=== PATIENT | male | born 1950 | race African-American/Black ===

== ENCOUNTER → 2019-03-10 | Outpatient (CLI) | payer MEDICARE ==
[2019-03-10] VITALS (12 sets, daily range): BP systolic 157–171; BP diastolic 74–83
[~2019-03-10] VITALS: Ht 172.7 cm; Wt 81.6 kg
[~2019-03-10] MED LIST: ALLO100T PO; ASPI-1158 PO; CALC667C PO; CARV12.545 PO; CEFAZOLIN 1000MG PREMIX 50 ML IV ONE; CLINDAMYCIN 600 MG in DEXTROSE 5% WATER 50 ML IV ONE; CLINDAMYCIN 600MG PREMIX 50 ML IV ONE; DOXA2TAB PO; DUTA0.5C2 PO; FENTANYL CITRATE/PF 50MCG/ML 2ML VIAL IV ONE; FENTANYL CITRATE/PF 50MCG/ML 2ML VIAL ONE; FURO-151 PO; GABA-531 PO; HEPARIN 1000 UNITS/ML 10ML ONE; LIDOCAINE HCL 1% 20ML VIAL (Pyxis) INJ ONE; LIDOCAINE HCL/EPINEPHRINE 1%-EPI 1:100,000 20 ML VIAL ONE; NIFE60TA64 PO; SODIUM BICARBONATE 4% (2.4MEQ) 5ML VIAL IV ONE
[2019-03-10 10:06] LABS: BASOPHILS % 0.6 % (0.0-2.0); EOSINOPHILS % 3.7 % (0.0-5.0); HEMATOCRIT. 27.3 % (42.0-52.0); HEMOGLOBIN. 9.2 g/dL (14.0-18.0); LYMPHOCYTES % 19.2 % (20.0-50.0); MEAN CORPUSCULAR HEMOGLOBIN 31.3 pg (28.0-32.0); MEAN CORPUSCULAR VOLUME 93.1 fL (80.0-94.0); MEAN PLATELET VOLUME 7.3 fl (7.4-10.4); MONOCYTES % 12.3 % (2.0-8.0); NEUTROPHILS % 64.2 % (40.0-76.0); PLATELET 191 x1000/uL (130-400); RED BLOOD CELL COUNT 2.93 mill/uL (4.7-6.1); RED CELL DISTRIBUTION WIDTH 15.9 % (11.6-14.6)
[2019-03-10 10:16] LABS: INR 1.1; PARTIAL THROMBOPLASTIN TIME 29.4 sec (23.4-31.0); PROTHROMBIN TIME 11.4 sec (9.6-11.0)
== END | disposition home or self-care (01) ==
LOC: RAD 09:21
PROVIDERS: ATTEND Internal Medicine Nephrology
DX: N18.6 End stage renal disease (principal); Z79.82 Long term (current) use of aspirin; Z79.899 Other long term (current) drug therapy; Z88.0 Allergy status to penicillin
CPT/HCPCS: 36415; 36558; 76937; 77001; 82947; 84132; 85025; 85610; 85730; C1725; C1750; C1751; C1769; J0690; J1644; J3010; J3490; 99152; 99153; J1642; G0500

== ENCOUNTER → 2019-03-12 | Outpatient (CLI) | payer MEDICARE ==
[~2019-03-12] MED LIST changes: -CEFAZOLIN 1000MG PREMIX 50 ML IV ONE; -CLINDAMYCIN 600 MG in DEXTROSE 5% WATER 50 ML IV ONE; -CLINDAMYCIN 600MG PREMIX 50 ML IV ONE; -FENTANYL CITRATE/PF 50MCG/ML 2ML VIAL IV ONE; -FENTANYL CITRATE/PF 50MCG/ML 2ML VIAL ONE; -HEPARIN 1000 UNITS/ML 10ML ONE; -LIDOCAINE HCL 1% 20ML VIAL (Pyxis) INJ ONE; -LIDOCAINE HCL/EPINEPHRINE 1%-EPI 1:100,000 20 ML VIAL ONE; -SODIUM BICARBONATE 4% (2.4MEQ) 5ML VIAL IV ONE
== END | disposition home or self-care (01) ==
LOC: LAB 11:07
PROVIDERS: ATTEND Internal Medicine Nephrology
DX: J44.9 Chronic obstructive pulmonary disease, unspecified (principal); R59.0 Localized enlarged lymph nodes
CPT/HCPCS: 71045

== ENCOUNTER 2019-03-16 08:00 | Inpatient (IN) | payer MEDICARE ==
[~2019-03-16] VITALS: Ht 170.2 cm; Wt 86.6 kg
[2019-03-16 09:34] LABS: CHLORIDE 117 mEq/L (98-107)
[2019-03-16 09:35] LABS: INR 1.1; PARTIAL THROMBOPLASTIN TIME 28.4 sec (23.4-31.0); PROTHROMBIN TIME 11.1 sec (9.6-11.0)
[2019-03-16 09:36] LABS: HEMATOCRIT. 27.8 % (42.0-52.0); HEMOGLOBIN. 9.2 g/dL (14.0-18.0); MEAN PLATELET VOLUME 7.6 fl (7.4-10.4); PLATELET 201 x1000/uL (130-400); RED BLOOD CELL COUNT 2.96 mill/uL (4.7-6.1); RED CELL DISTRIBUTION WIDTH 15.6 % (11.6-14.6)
[2019-03-16 09:38] LABS: ETHANOL BLOOD < 10 mg/dL
[2019-03-16 10:35] LABS: PLATELET ESTIMATE NORMAL
[2019-03-16 10:48] LABS: CREATINE KINASE 500 IU/L (39-308)
[2019-03-16 12:30] VITALS: BP 139/68
[2019-03-16] MEDS ORDERED: LORAZEPAM 0.5MG TABLET PO PRN ×2 (13:30→17:45)
[2019-03-16] MEDS ORDERED: ONDANSETRON HCL 4MG/2ML INJ IV PRN ×2 (13:30→17:45)
[2019-03-16] MEDS ORDERED: IPRATROPIUM/ALBUTEROL 0.5-3(2.5)MG/3ML NEB HHN PRN ×2 (13:30→17:45)
[2019-03-16] MEDS ORDERED: ACETAMINOPHEN 325MG TABLET PO PRN ×2 (13:30→17:45)
[2019-03-16] MEDS: CLONIDINE 0.1MG TABLET PO PRN (13:57)
[2019-03-16 16:15] VITALS: BP 167/84
[2019-03-16] MEDS ORDERED: HYDROCODONE/ACETAMINOPHEN 5/325MG TABLET PO PRN (17:45)
[2019-03-16] MEDS ORDERED: DOCUSATE SODIUM 100MG CAPSULE PO PRN (17:45)
[2019-03-16] MEDS ORDERED: CLONIDINE 0.1MG TABLET PO PRN (17:45)
[2019-03-16 20:00] VITALS: BP 164/79
[2019-03-16] MEDS: AMLODIPINE 5MG TABLET PO SCH (20:46)
[2019-03-17] VITALS (7 sets, daily range): BP systolic 138–178; BP diastolic 65–86
[2019-03-17] MEDS: CLONIDINE 0.1MG TABLET PO PRN ×2 (00:12→16:40)
[2019-03-17 07:03] LABS: BASOPHILS % 1.1 % (0.0-2.0); EOSINOPHILS % 3.2 % (0.0-5.0); HEMOGLOBIN. 7.8 g/dL (14.0-18.0); LYMPHOCYTES % 19.1 % (20.0-50.0); MEAN CORPUSCULAR HEMOGLOBIN 30.6 pg (28.0-32.0); MEAN CORPUSCULAR VOLUME 94.5 fL (80.0-94.0); MEAN PLATELET VOLUME 7.4 fl (7.4-10.4); MONOCYTES % 11.4 % (2.0-8.0); NEUTROPHILS % 65.2 % (40.0-76.0); PLATELET 174 x1000/uL (130-400); RED BLOOD CELL COUNT 2.54 mill/uL (4.7-6.1); RED CELL DISTRIBUTION WIDTH 16.3 % (11.6-14.6)
[2019-03-17] MEDS: AMLODIPINE 5MG TABLET PO SCH ×2 (09:33→21:37)
[2019-03-17 11:41] LABS: HEPATITIS B SURFACE AB < 3.1 mIU/mL
[2019-03-17 11:51] LABS: HEPATITIS B SURFACE ANTIGEN NEGATIVE
[2019-03-17 12:20] LABS: HEPATITIS A AB IGM NEGATIVE (NEGATIVE)
[2019-03-17] MEDS ORDERED: FURO-151 PO (19:25)
[2019-03-17] MEDS ORDERED: CALC667C PO (19:25)
[2019-03-17] MEDS ORDERED: ASPI-1158 PO (19:25)
[2019-03-17] MEDS ORDERED: GABA-531 PO (19:25)
[2019-03-17] MEDS ORDERED: DUTA0.5C2 PO (19:25)
[2019-03-17] MEDS ORDERED: CARV12.545 PO (19:43)
[2019-03-17] MEDS ORDERED: NIFE60TA64 PO (19:43)
[2019-03-17] MEDS ORDERED: ALLO100T PO ×2 (19:43)
[2019-03-17] MEDS ORDERED: DOXA2TAB PO (19:43)
[2019-03-17] MEDS: HYDROCODONE/ACETAMINOPHEN 5/325MG TABLET PO PRN (22:55)
[2019-03-18] VITALS (7 sets, daily range): BP systolic 138–178; BP diastolic 68–84
[2019-03-18 07:31] LABS: BASOPHILS % 1.2 % (0.0-2.0); EOSINOPHILS % 5.5 % (0.0-5.0); HEMATOCRIT. 24.2 % (42.0-52.0); HEMOGLOBIN. 7.9 g/dL (14.0-18.0); LYMPHOCYTES % 25.4 % (20.0-50.0); MEAN CORPUSCULAR VOLUME 94.9 fL (80.0-94.0); MEAN PLATELET VOLUME 7.8 fl (7.4-10.4); MONOCYTES % 13.6 % (2.0-8.0); NEUTROPHILS % 54.3 % (40.0-76.0); PLATELET 186 x1000/uL (130-400); RED BLOOD CELL COUNT 2.55 mill/uL (4.7-6.1); RED CELL DISTRIBUTION WIDTH 16.2 % (11.6-14.6)
[2019-03-18] MEDS ORDERED: AMLODIPINE 5MG TABLET PO SCH (09:00)
[2019-03-18] MEDS: DOCUSATE SODIUM 100MG CAPSULE PO PRN (09:10)
[2019-03-18] MEDS: AMLODIPINE 5MG TABLET PO SCH ×2 (09:11→20:14)
[2019-03-18] MEDS: CALCITRIOL 0.25MCG CAPSULE PO SCH (09:45)
[2019-03-18] MEDS: IRON SUCROSE COMPLEX 100 MG/5 ML ML IV SCH ×2 (18:08→18:09)
[2019-03-18] MEDS: HYDROCODONE/ACETAMINOPHEN 5/325MG TABLET PO PRN (20:24)
[2019-03-19] VITALS: BP 160/80
[2019-03-19 04:00] VITALS: BP 158/84
[2019-03-19 05:10] LABS: HIV SCREEN 4G Non Reactive (Non Reactive)
[2019-03-19 08:00] VITALS: BP 179/89
[2019-03-19] MEDS: CLONIDINE 0.1MG TABLET PO PRN (09:15)
[2019-03-19] MEDS: CALCITRIOL 0.25MCG CAPSULE PO SCH (09:15)
[2019-03-19] MEDS: AMLODIPINE 5MG TABLET PO SCH (09:15)
[2019-03-19] MEDS: DOCUSATE SODIUM 100MG CAPSULE PO PRN (09:15)
[2019-03-19 12:00] VITALS: BP 156/74
[2019-03-19 15:57] VITALS: BP 155/78
[2019-03-19] MEDS: IRON SUCROSE COMPLEX 100 MG/5 ML ML IV SCH (17:25)
[2019-03-19 18:20] LABS: CREATINE KINASE 153 IU/L (39-308)
== END 2019-03-19 17:38 | DRG 70 ==
LOC: ER 08:00 → 7WST 10:31 → EDBEDREQTM 10:34 → EDBEDREQ 10:34 → ENRESERV 11:48
PROVIDERS: ADMIT Internal Medicine Nephrology; ATTEND Internal Medicine Nephrology
PROC: 5A1D70Z Performance of Urinary Filtration, Intermittent, Less than 6 Hours Per Day (ICD-10-PCS; principal; 2019-03-17)
DX: G93.41 Metabolic encephalopathy (principal); E43 Unspecified severe protein-calorie malnutrition; N18.6 End stage renal disease; M62.82 Rhabdomyolysis; J98.11 Atelectasis; I13.11 Hypertensive heart and chronic kidney disease without heart failure, with stage 5 chronic kidney disease, or end stage renal disease; N17.9 Acute kidney failure, unspecified; E87.2 Acidosis; E87.70 Fluid overload, unspecified; S09.90XA Unspecified injury of head, initial encounter; I16.0 Hypertensive urgency; E86.0 Dehydration; S00.81XA Abrasion of other part of head, initial encounter; I45.10 Unspecified right bundle-branch block; E88.09 Other disorders of plasma-protein metabolism, not elsewhere classified; R26.9 Unspecified abnormalities of gait and mobility; E11.22 Type 2 diabetes mellitus with diabetic chronic kidney disease; D63.8 Anemia in other chronic diseases classified elsewhere; B19.20 Unspecified viral hepatitis C without hepatic coma; G47.00 Insomnia, unspecified; D72.1 Eosinophilia; W18.39XA Other fall on same level, initial encounter; I25.10 Atherosclerotic heart disease of native coronary artery without angina pectoris; K76.0 Fatty (change of) liver, not elsewhere classified; Z85.46 Personal history of malignant neoplasm of prostate; Z99.2 Dependence on renal dialysis; Z92.3 Personal history of irradiation; Z68.29 Body mass index [BMI] 29.0-29.9, adult; Z88.0 Allergy status to penicillin; Z79.899 Other long term (current) drug therapy; Z87.891 Personal history of nicotine dependence; Y93.89 Activity, other specified; Y92.89 Other specified places as the place of occurrence of the external cause; Y99.8 Other external cause status
CPT/HCPCS: 36415; 71045; 76700; 80048; 80061; 80076; 80320; 82140; 82150; 82550; 82962; 83605; 83880; 83970; 84484; 86705; 86706; 86709; 86803; 87340; 87389; 93005; 93306; 93880; 97162; 97166; 99285; G0480

== ENCOUNTER 2019-03-19 18:00 | Inpatient (IN) | payer MEDICARE ==
[~2019-03-19] VITALS: Ht 170.2 cm; Wt 86.6 kg
[2019-03-19 19:00] VITALS: BP 183/81
[2019-03-19 20:00] VITALS: BP 183/81
[2019-03-19] MEDS ORDERED: LORAZEPAM 0.5MG TABLET PO PRN ×2 (21:15)
[2019-03-19] MEDS ORDERED: DOCUSATE SODIUM 100MG CAPSULE PO PRN (21:15)
[2019-03-19] MEDS ORDERED: IPRATROPIUM/ALBUTEROL 0.5-3(2.5)MG/3ML NEB HHN PRN (21:15)
[2019-03-19] MEDS ORDERED: ONDANSETRON HCL 4MG/2ML INJ IV PRN (21:15)
[2019-03-19] MEDS ORDERED: CLONIDINE 0.1MG TABLET PO PRN (21:15)
[2019-03-19] MEDS: AMLODIPINE 5MG TABLET PO SCH (22:01)
[2019-03-20 07:55] VITALS: BP 175/78
[2019-03-20] MEDS: AMLODIPINE 5MG TABLET PO SCH ×2 (08:09→21:00)
[2019-03-20] MEDS: CALCITRIOL 0.25MCG CAPSULE PO SCH (08:09)
[2019-03-20 12:10] LABS: BASOPHILS % 1.5 % (0.0-2.0); EOSINOPHILS % 4.7 % (0.0-5.0); HEMATOCRIT. 27.4 % (42.0-52.0); HEMOGLOBIN. 8.9 g/dL (14.0-18.0); LYMPHOCYTES % 20.1 % (20.0-50.0); MEAN CORPUSCULAR HEMOGLOBIN 30.8 pg (28.0-32.0); MEAN CORPUSCULAR VOLUME 94.6 fL (80.0-94.0); MEAN PLATELET VOLUME 7.6 fl (7.4-10.4); MONOCYTES % 14.3 % (2.0-8.0); NEUTROPHILS % 59.4 % (40.0-76.0); PLATELET 251 x1000/uL (130-400); RED BLOOD CELL COUNT 2.89 mill/uL (4.7-6.1); RED CELL DISTRIBUTION WIDTH 15.6 % (11.6-14.6)
[2019-03-20 12:14] LABS: CHLORIDE 111 mEq/L (98-107)
[2019-03-20] MEDS: ACETAMINOPHEN 325MG TABLET PO PRN (18:45)
[2019-03-20 20:00] VITALS: BP 167/73
[2019-03-21] MEDS: IRON SUCROSE COMPLEX 100 MG in SODIUM CHLORIDE 0.9% 100 ML IV SCH ×2 (02:16→21:00)
[2019-03-21 08:00] VITALS: BP 168/83
[2019-03-21] MEDS: CALCITRIOL 0.25MCG CAPSULE PO SCH (09:16)
[2019-03-21] MEDS: AMLODIPINE 5MG TABLET PO SCH ×2 (09:16→21:00)
[2019-03-21 09:29] LABS: BASOPHILS % 1.3 % (0.0-2.0); EOSINOPHILS % 3.2 % (0.0-5.0); HEMATOCRIT. 27.6 % (42.0-52.0); HEMOGLOBIN. 9.1 g/dL (14.0-18.0); LYMPHOCYTES % 14.7 % (20.0-50.0); MEAN PLATELET VOLUME 7.6 fl (7.4-10.4); MONOCYTES % 11.9 % (2.0-8.0); NEUTROPHILS % 68.9 % (40.0-76.0); PLATELET 229 x1000/uL (130-400); RED BLOOD CELL COUNT 2.94 mill/uL (4.7-6.1); RED CELL DISTRIBUTION WIDTH 15.5 % (11.6-14.6)
[2019-03-21 20:00] VITALS: BP 143/73
[2019-03-21] MEDS: MEGESTROL ACETATE 40MG TABLET PO SCH (20:59)
[2019-03-22 08:19] VITALS: BP 145/75
[2019-03-22] MEDS: CALCITRIOL 0.25MCG CAPSULE PO SCH (09:20)
[2019-03-22] MEDS: AMLODIPINE 5MG TABLET PO SCH ×2 (09:20→21:00)
[2019-03-22] MEDS: MEGESTROL ACETATE 40MG TABLET PO SCH (09:20)
[2019-03-22 11:44] LABS: BASOPHILS % 1.2 % (0.0-2.0); EOSINOPHILS % 3.2 % (0.0-5.0); HEMATOCRIT. 27.2 % (42.0-52.0); LYMPHOCYTES % 18.4 % (20.0-50.0); MEAN CORPUSCULAR HEMOGLOBIN 31.1 pg (28.0-32.0); MEAN CORPUSCULAR VOLUME 94.5 fL (80.0-94.0); MEAN PLATELET VOLUME 7.3 fl (7.4-10.4); MONOCYTES % 12.3 % (2.0-8.0); NEUTROPHILS % 64.9 % (40.0-76.0); PLATELET 224 x1000/uL (130-400); RED BLOOD CELL COUNT 2.88 mill/uL (4.7-6.1); RED CELL DISTRIBUTION WIDTH 15.8 % (11.6-14.6)
[2019-03-22 12:30] LABS: FOLIC ACID (FOLATE) SERUM 19.9 ng/mL (>5.38); PROSTRATE SPECIFIC AG TOTAL 0.04 ng/mL (0.0-4.0)
[2019-03-22] MEDS: IRON SUCROSE COMPLEX 100 MG in SODIUM CHLORIDE 0.9% 100 ML IV SCH (18:46)
[2019-03-22 20:00] VITALS: BP 154/80
[2019-03-23] MEDS: HYDROCODONE/ACETAMINOPHEN 5/325MG TABLET PO PRN ×2 (04:12→09:44)
[2019-03-23 08:20] VITALS: BP 147/84
[2019-03-23] MEDS: AMLODIPINE 5MG TABLET PO SCH ×2 (08:49→20:57)
[2019-03-23] MEDS: CALCITRIOL 0.25MCG CAPSULE PO SCH (08:49)
[2019-03-23] MEDS: MEGESTROL ACETATE 40MG TABLET PO SCH (08:49)
[2019-03-23 09:38] LABS: BASOPHILS % 1.5 % (0.0-2.0); EOSINOPHILS % 1.7 % (0.0-5.0); HEMATOCRIT. 28.6 % (42.0-52.0); HEMOGLOBIN. 9.4 g/dL (14.0-18.0); LYMPHOCYTES % 13.2 % (20.0-50.0); MEAN CORPUSCULAR HEMOGLOBIN 30.9 pg (28.0-32.0); MEAN CORPUSCULAR VOLUME 94.5 fL (80.0-94.0); MEAN PLATELET VOLUME 7.3 fl (7.4-10.4); MONOCYTES % 10.9 % (2.0-8.0); NEUTROPHILS % 72.7 % (40.0-76.0); PLATELET 224 x1000/uL (130-400); RED BLOOD CELL COUNT 3.03 mill/uL (4.7-6.1); RED CELL DISTRIBUTION WIDTH 15.8 % (11.6-14.6)
[2019-03-23 20:00] VITALS: BP 161/79
[2019-03-24] MEDS: AMLODIPINE 5MG TABLET PO SCH ×2 (08:07→21:28)
[2019-03-24] MEDS: MEGESTROL ACETATE 40MG TABLET PO SCH (08:07)
[2019-03-24] MEDS: CALCITRIOL 0.25MCG CAPSULE PO SCH (08:07)
[2019-03-24 08:09] VITALS: BP 148/79
[2019-03-24 10:11] LABS: BASOPHILS % 1.1 % (0.0-2.0); EOSINOPHILS % 2.8 % (0.0-5.0); HEMATOCRIT. 31.5 % (42.0-52.0); HEMOGLOBIN. 10.3 g/dL (14.0-18.0); LYMPHOCYTES % 18.8 % (20.0-50.0); MEAN CORPUSCULAR VOLUME 94.8 fL (80.0-94.0); MEAN PLATELET VOLUME 7.4 fl (7.4-10.4); MONOCYTES % 13.8 % (2.0-8.0); NEUTROPHILS % 63.5 % (40.0-76.0); PLATELET 280 x1000/uL (130-400); RED BLOOD CELL COUNT 3.32 mill/uL (4.7-6.1); RED CELL DISTRIBUTION WIDTH 15.7 % (11.6-14.6)
[2019-03-24 15:18] LABS: CLARITY URINE CLOUDY (CLEAR); COLOR URINE DARK YELLOW (YELLOW); KETONES URINE TRACE (NEGATIVE); LEUKOCYTE ESTERASE URINE TRACE (NEGATIVE); NITRITE URINE NEGATIVE (NEGATIVE); OCCULT BLOOD URINE TRACE (NEGATIVE); PROTEIN URINE 3+ (NEGATIVE); SPECIFIC GRAVITY URINE 1.021 (1.005-1.030)
[2019-03-24 20:00] VITALS: BP 156/79
[2019-03-25 07:59] VITALS: BP 142/82
[2019-03-25] MEDS: CALCITRIOL 0.25MCG CAPSULE PO SCH (08:38)
[2019-03-25] MEDS: MEGESTROL ACETATE 40MG TABLET PO SCH (08:38)
[2019-03-25] MEDS: AMLODIPINE 5MG TABLET PO SCH ×2 (08:39→22:30)
[2019-03-25 20:00] VITALS: BP 142/69
[2019-03-25] MEDS: ACETAMINOPHEN 325MG TABLET PO PRN (20:34)
[2019-03-26] MEDS: ACETAMINOPHEN 325MG TABLET PO PRN (03:58)
[2019-03-26 08:01] VITALS: BP 134/76
[2019-03-26] MEDS: CALCITRIOL 0.25MCG CAPSULE PO SCH (08:46)
[2019-03-26] MEDS: MEGESTROL ACETATE 40MG TABLET PO SCH (08:47)
[2019-03-26] MEDS: AMLODIPINE 5MG TABLET PO SCH ×2 (08:47→21:35)
[2019-03-26 10:39] LABS: BASOPHILS % 1.1 % (0.0-2.0); EOSINOPHILS % 1.5 % (0.0-5.0); HEMATOCRIT. 30.5 % (42.0-52.0); HEMOGLOBIN. 10.2 g/dL (14.0-18.0); LYMPHOCYTES % 19.8 % (20.0-50.0); MEAN CORPUSCULAR HEMOGLOBIN 31.3 pg (28.0-32.0); MEAN CORPUSCULAR VOLUME 93.3 fL (80.0-94.0); MEAN PLATELET VOLUME 7.2 fl (7.4-10.4); MONOCYTES % 12.8 % (2.0-8.0); NEUTROPHILS % 64.8 % (40.0-76.0); PLATELET 274 x1000/uL (130-400); RED BLOOD CELL COUNT 3.26 mill/uL (4.7-6.1); RED CELL DISTRIBUTION WIDTH 15.3 % (11.6-14.6)
[2019-03-26 13:06] LABS: 25-HYDROXY VITAMIN D3 12 ng/mL (.)
[2019-03-26 20:00] VITALS: BP 121/61
[2019-03-26 23:01] VITALS: BP 121/61
[2019-03-27 08:28] VITALS: BP 129/70
[2019-03-27] MEDS: CALCITRIOL 0.25MCG CAPSULE PO SCH (09:41)
[2019-03-27] MEDS: MEGESTROL ACETATE 40MG TABLET PO SCH (09:41)
[2019-03-27] MEDS: AMLODIPINE 5MG TABLET PO SCH ×2 (09:42→21:06)
[2019-03-27] MEDS: ACETAMINOPHEN 325MG TABLET PO PRN (14:47)
[2019-03-27] MEDS ORDERED: HEPARIN SODIUM 1,000 UNIT/1ML VIAL IV SCH (16:45)
[2019-03-27 20:00] VITALS: BP 111/67
[2019-03-28 08:00] VITALS: BP 128/75
[2019-03-28] MEDS: MEGESTROL ACETATE 40MG TABLET PO SCH (09:37)
[2019-03-28] MEDS: AMLODIPINE 5MG TABLET PO SCH (09:37)
[2019-03-28] MEDS: CALCITRIOL 0.25MCG CAPSULE PO SCH (09:37)
[2019-03-28] MEDS: ACETAMINOPHEN 325MG TABLET PO PRN (11:00)
[2019-03-28 11:17] VITALS: BP 128/75
== END 2019-03-28 14:45 | disposition home health service (06) | DRG 70 ==
PROVIDERS: ADMIT Physical Medicine & Rehabilitation Spinal Cord Injury Medicine; ATTEND Internal Medicine Nephrology
PROC: 4A10X4Z Monitoring of Central Nervous Electrical Activity, External Approach (ICD-10-PCS; 2019-03-19)
PROC: 5A1D70Z Performance of Urinary Filtration, Intermittent, Less than 6 Hours Per Day (ICD-10-PCS; principal; 2019-03-20)
PROC: 5A1D70Z Performance of Urinary Filtration, Intermittent, Less than 6 Hours Per Day (ICD-10-PCS; 2019-03-22)
PROC: 5A1D70Z Performance of Urinary Filtration, Intermittent, Less than 6 Hours Per Day (ICD-10-PCS; 2019-03-25)
PROC: 5A1D70Z Performance of Urinary Filtration, Intermittent, Less than 6 Hours Per Day (ICD-10-PCS; 2019-03-27)
DX: G93.40 Encephalopathy, unspecified (principal); N18.6 End stage renal disease; E43 Unspecified severe protein-calorie malnutrition; I13.11 Hypertensive heart and chronic kidney disease without heart failure, with stage 5 chronic kidney disease, or end stage renal disease; J98.11 Atelectasis; N25.81 Secondary hyperparathyroidism of renal origin; R53.81 Other malaise; R26.9 Unspecified abnormalities of gait and mobility; R79.89 Other specified abnormal findings of blood chemistry; B19.20 Unspecified viral hepatitis C without hepatic coma; D63.8 Anemia in other chronic diseases classified elsewhere; D50.9 Iron deficiency anemia, unspecified; E87.8 Other disorders of electrolyte and fluid balance, not elsewhere classified; T79.6XXA Traumatic ischemia of muscle, initial encounter; I25.10 Atherosclerotic heart disease of native coronary artery without angina pectoris; I45.10 Unspecified right bundle-branch block; K76.0 Fatty (change of) liver, not elsewhere classified; S00.81XA Abrasion of other part of head, initial encounter; W18.39XA Other fall on same level, initial encounter; E86.0 Dehydration; R16.0 Hepatomegaly, not elsewhere classified; Z87.891 Personal history of nicotine dependence; Z92.3 Personal history of irradiation; Z85.46 Personal history of malignant neoplasm of prostate; Z99.2 Dependence on renal dialysis; Z68.29 Body mass index [BMI] 29.0-29.9, adult; Y93.89 Activity, other specified; Y92.89 Other specified places as the place of occurrence of the external cause; Y99.8 Other external cause status
CPT/HCPCS: 36415; 80048; 81003; 82306; 82607; 82728; 82746; 83540; 83550; 83735; 84100; 84134; 84153; 84443; 92523; 92610; 93970; 97110; 97116; 97163; 97166; 97530; 97535; J1644; J7050; G0103

== ENCOUNTER 2019-05-29 10:12 | Emergency (ER) | payer MEDICARE ==
[~2019-05-29] VITALS: Ht 180.3 cm; Wt 82.0 kg
[2019-05-29 23:48] LABS: BASOPHILS % 0.9 % (0.0-2.0); EOSINOPHILS % 0.7 % (0.0-5.0); HEMATOCRIT. 39.8 % (42.0-52.0); HEMOGLOBIN. 13.2 g/dL (14.0-18.0); MEAN CORPUSCULAR HEMOGLOBIN 29.9 pg (28.0-32.0); MEAN CORPUSCULAR VOLUME 90.4 fL (80.0-94.0); MEAN PLATELET VOLUME 7.3 fl (7.4-10.4); MONOCYTES % 9.1 % (2.0-8.0); NEUTROPHILS % 62.3 % (40.0-76.0); PLATELET 268 x1000/uL (130-400); RED CELL DISTRIBUTION WIDTH 13.4 % (11.6-14.6)
[2019-05-29 23:56] LABS: CHLORIDE 97 mEq/L (98-107)
[2019-05-29 23:58] LABS: CLARITY URINE CLEAR (CLEAR); COLOR URINE ORANGE (YELLOW); KETONES URINE NEGATIVE (NEGATIVE); LEUKOCYTE ESTERASE URINE NEGATIVE (NEGATIVE); NITRITE URINE NEGATIVE (NEGATIVE); OCCULT BLOOD URINE 3+ (NEGATIVE); PROTEIN URINE 3+ (NEGATIVE); SPECIFIC GRAVITY URINE 1.014 (1.005-1.030); UROBILINOGEN URINE 0.2 E.U./dL (0.2-1.0)
[2019-05-30 02:00] VITALS: BP 137/79
== END 2019-05-30 02:58 | disposition home or self-care (01) ==
LOC: ER 10:12
DX: R31.9 Hematuria, unspecified (principal); I12.0 Hypertensive chronic kidney disease with stage 5 chronic kidney disease or end stage renal disease; N18.6 End stage renal disease; Z99.2 Dependence on renal dialysis; Z85.46 Personal history of malignant neoplasm of prostate; Z79.82 Long term (current) use of aspirin; Z88.0 Allergy status to penicillin; Z79.899 Other long term (current) drug therapy
CPT/HCPCS: 36415; 76857; 81003; 99284

== ENCOUNTER → 2021-05-18 | Outpatient (CLI) | payer MEDICARE, MEDICAID ==
[~2021-05-18] MED LIST changes: -ASPI-1158 PO; +ASPI-1406 PO; +BARIUM SULFATE 176 GM SUSP.RECON ONE; +EZ-HD SUSPENSION(BARIUM SULFATE 340GM) PO ONE; -GABA-531 PO; +GABA-532 PO; +NIFE-32 PO; -NIFE60TA64 PO
== END | disposition home or self-care (01) ==
LOC: RAD 07:56
PROVIDERS: ATTEND Internal Medicine Gastroenterology
DX: R13.10 Dysphagia, unspecified (principal)
CPT/HCPCS: 74220